=== PATIENT | female | born 1985 | race Caucasian/White ===

== ENCOUNTER 2016-10-01 10:50 | Emergency (ER) | payer MEDICAID ==
[~2016-10-01] VITALS: Ht 170.2 cm; Wt 99.8 kg
[2016-10-01 12:09] VITALS: BP 142/86
[2016-10-01] MEDS ORDERED: KETOROLAC TROMETH 60MG/2ML VIAL IM ONE (12:45)
[2016-10-01] MEDS ORDERED: diphenhdrAMINE HCL 50 MG/1 ML VL IM ONE (12:45)
== END 2016-10-01 12:52 | disposition home or self-care (01) ==
LOC: ER 11:00
DX: S39.012A Strain of muscle, fascia and tendon of lower back, initial encounter (principal); M51.36 Other intervertebral disc degeneration, lumbar region; X50.1XXA Overexertion from prolonged static or awkward postures, initial encounter; Y93.01 Activity, walking, marching and hiking
CPT/HCPCS: 72100; 96372; 99284; J1200; J1885